=== PATIENT | female | born 1975 | race Hispanic/Latino ===

== ENCOUNTER 2019-06-24 17:09 | Emergency (ER) | payer MEDICAID, SELFPAY ==
[2019-06-24] MEDS ORDERED: Ketorolac Tromethamine 60 MG/2 ML VIAL ONE (17:40)
== END 2019-06-24 18:00 | disposition home or self-care (01) ==
LOC: ERS 17:09
DX: M54.5 Low back pain (principal)
CPT/HCPCS: 96372; 99283; J1885